=== PATIENT | female | born 1965 | race Caucasian/White ===

== ENCOUNTER 2021-10-12 12:45 | Outpatient (CLI) | payer OTHER, SELFPAY ==
--- NOTE | ~2021-10-12 | MMUS_ITS ---
EXAMINATION: MM diagnostic hola BI w vaishali, US breast BI complete HISTORY: Diffuse cystic mastopathy TECHNIQUE: Bilateral full field and spot ML, MLO and CC 3-D tomosynthesis images were performed and s ynthetic 2-D images were generated. Magnification CC view right breast. CAD analysis was submitted an d interpreted. High resolution bilateral complete breast ultrasound including all 4 quadrants and sub areolar areas was performed. COMPARISON: 08/05/2019 bilateral diagnostic mammography and bilateral complete breast ultrasound 06/03/2019 bilateral screening mammogram BREAST PARENCHYMAL COMPOSITION: The breasts are heterogeneously dense, which may obscure small masses . FINDINGS: MAMMOGRAPHIC FINDINGS: There are new grouped granular appearing microcalcifications in the upper outer quadrant of the right breast. There is a nearby biopsy marker. Stereotactic biopsy is recommended. Minimal benign calcifications are noted elsewhere in the breast. There is a biopsy marker on the left; history of prior bilateral benign breast biopsies. Otherwise no suspicious mass, architectural distortion, malignant calcification, skin thickening or r etraction of either breast is detected. ULTRASOUND: No suspicious solid lesion or shadowing of either breast is detected. Right breast: Prominent ducts are noted. No suspicious mass or shadowing is detected. Left breast: 3:00 2 cm from nipple: Parallel circumscribed complicated cyst measuring 3.5 x 7.2 x 7 mm, with throu gh transmission, benign 4:00 4 cm from nipple: 3.3 x 8 x 7.4 mm cyst with through transmission, benign IMPRESSION: 1. New granular grouped microcalcifications in the upper outer right breast 2. Stereotactic biopsy is recommended BI-RADS category 4, suspicious findings. Dr. Flor telephoned the report and certainly biopsy recommendation on the right breast on 10/12/2021 a t 1458 hours to Sandra, sales and service consultant. She indicated she would have Dr. Palm call me back. Reviewed, dictated and finalized at location A. GE ENTRY SPECIALIST IMPRESSION: 1. New granular grouped microcalcifications in the upper outer right breast 2. Stereotactic biopsy is recommended BI-RADS category 4, suspicious findings. Dr. Flor telephoned the report and certainly biopsy recommendation on the right breast on 10/12/2021 at 1458 hours to Sandra sales and service consultant. She indicated she would have Dr. Palm call me back. IMPRESSION: 1. New granular grouped microcalcifications in the upper outer right breast 2. Stereotactic biopsy is recommended BI-RADS category 4, suspicious findings. Dr. Flor telephoned the report and certainly biopsy recommendation on the right breast on 10/12/2021 at 1458 hours to Sandra, sales and service consultant. She indicated she would have Dr. Palm call me back.
== END 2021-10-12 12:46 | disposition home or self-care (01) ==
PROVIDERS: Visit Provider Surgery
DX: N60.19 Diffuse cystic mastopathy of unspecified breast (principal); N60.02 Solitary cyst of left breast; N60.01 Solitary cyst of right breast; R92.0 Mammographic microcalcification found on diagnostic imaging of breast
CPT/HCPCS: 76641; 77062; 77066; G0279

== ENCOUNTER 2021-10-25 11:28 | Outpatient (CLI) | payer OTHER, SELFPAY ==
--- NOTE | ~2021-10-25 | MM_ITS ---
MM stereotactic bx RT, MM post biopsy diagnostic RT, MM stereotactic specimen RT EXAMINATION: MM stereotactic bx RT, MM post biopsy diagnostic RT, MM stereotactic specimen RT DATE: David Cary M.D. INDICATION: Abnormal calcifications in the right breast. Stereotactic core biopsy is requested evalu ate for malignancy.] TECHNIQUE AND FINDINGS: The risks and potential benefits of the procedure were discussed with the patient and written informe d consent was obtained. The patient was placed in the prone position clustered at the table with the right breast in craniocaudal compression, and the area of interest was localized and targeted utiliz ing digital imaging with stereotaxis. After sterile preparation of the skin, 1% lidocaine was utilized for local anesthesia at the skin pun cture site and 1% lidocaine with epinephrine was utilized for deeper local anesthesia/is about the bi opsy site. A 9G [employer] vacuum assisted biopsy needle was advanced to the level of the calcification o f interest from a cephalad approach utilizing stereotactic guidance and a total of 6 tissue core biop sies were obtained. A specimen radiograph demonstrates that the calcifications of interest are included within the tissue cores. A tissue marker clip was then placed at the biopsy site. The needle was removed and hemosta sis was achieved. The patient tolerated the procedure well and there is no evidence of significant i mmediate complication. The patient was given verbal as well as written postprocedural instructions p rior to discharge from the department. Tissue cores were submitted to surgical pathology for histolo gic analysis. A 2-view right unilateral digital mammogram was obtained post procedure and this demonstrates that th e tissue marker clip is in expected position.] IMPRESSION: 1. Successful stereotactic biopsy of calcifications in the upper outer quadrant of the right breast, followed by tissue marker clip placement. Please refer to pathology report for histologic analysis. Reviewed, dictated and finalized at location A. TING TEACHER IMPRESSION: 1. Successful stereotactic biopsy of calcifications in the upper outer quadran t of the right breast, followed by tissue marker clip placement. Please refer to pathology report for histologic analysis. IMPRESSION: 1. Successful stereotactic biopsy of calcifications in the upper outer quadran t of the right breast, followed by tissue marker clip placement. Please refer to pathology report for histologic analysis.
== END 2021-10-25 11:29 | disposition home or self-care (01) ==
PROVIDERS: Visit Provider Surgery
DX: R92.1 Mammographic calcification found on diagnostic imaging of breast (principal)
CPT/HCPCS: 19081; 77065; 88305

== ENCOUNTER → 2021-11-04 04:40 | Outpatient (CLI) | payer OTHER, SELFPAY ==
[2021-11-04 13:13] LABS: SARS-CoV-2 RNA PCR Negative
== END ==
PROVIDERS: Visit Provider Surgery
DX: Z01.812 Encounter for preprocedural laboratory examination (principal); Z20.822 Contact with and (suspected) exposure to COVID-19
CPT/HCPCS: C9803; U0003; U0005

== ENCOUNTER 2021-11-04 09:06 | Outpatient (CLI) | payer OTHER, SELFPAY ==
--- NOTE | 2021-11-04 09:30 | ECG_ITS ---
Measurements Intervals [place] Rate: 52 P: 66 OR: 146 QRS: 35 QRSD: 89 T: 56 QT: 422 QTc: 393 Interpretive Statements SINUS BRADYCARDIA POSSIBLE RIGHT VENTRICULAR CONDUCTION DELAY [RSR (QR) IN V1/V2] COMPARED TO ECG 02/17/2019 04:24:18 NO SIGNIFICANT CHANGES Electronically Signed On 11-04-2021 16:09:04 CDT by Matty Fonseca M.D.
[2021-11-04 09:48] LABS: Basophils Percent Auto 0.6 % (0.2-1.2); Eosinophils Absolute Auto 0.3 K/mm3 (0-0.3); Eosinophils Percent Auto 4.3 % (0-4.4); Hematocrit 43.7 % (37.0-47.0); Hemoglobin 14.5 g/dL (12.0-15.0); Immature Granulocyte Absolute 0.02 K/mm3 (0.00-0.031); Immature Granulocyte Percent A 0.3 % (0-0.5); Lymphocytes Absolute Auto 2.15 K/mm3 (0.9-3.2); Lymphocytes Percent Auto 32.2 % (18.3-44.2); Mean Corpuscular HGB Conc 33.2 g/dl (32-36); Mean Corpuscular Hemoglobin 31.5 pg (26-34); Mean Corpuscular Volume 94.8 fl (80-100); Monocytes Absolute Auto 0.5 K/mm3 (0.1-0.6); Monocytes Percent Auto 6.9 % (2.6-8.5); Neutrophils Absolute Auto 3.7 K/mm3 (1.3-6.7); Neutrophils Percent Auto 55.7 % (45.5-73.1); Platelet Count Result 328 k/mm3 (150-375); Red Blood Count 4.61 M/mm3 (4.2-5.4); Red Cell Distribution Width 14.6 % (11.5-14.5); White Blood Count 6.7 K/mm3 (4.5-10.0)
[2021-11-04 09:58] LABS: Alanine Aminotransferase 22 U/L (4-35); Albumin Level 4.1 g/dL (3.5-5.1); Alkaline Phosphatase 76 U/L (38-126); Anion Gap 4 mmol/L (8-16); Aspartate Amino Transferase 25 U/L (14-36); Bilirubin,Total 0.7 mg/dL (0.2-1.3); Blood Urea Nitrogen 10 mg/dL (7-17); Calcium 8.7 mg/dL (8.4-10.2); Carbon Dioxide 26 mmol/L (22-30); Chloride 109 mmol/L (98-107); Estimated Glomerular Filt Rate > 60; Glucose 113 mg/dL (65-110); Sodium 139 mmol/L (137-145)
== END 2021-11-04 09:07 | disposition home or self-care (01) ==
LOC: ANHSURGERY 09:13
PROVIDERS: PCP Family Medicine; Visit Provider Surgery
DX: N60.91 Unspecified benign mammary dysplasia of right breast (principal); Z72.0 Tobacco use; Z01.818 Encounter for other preprocedural examination; I45.9 Conduction disorder, unspecified
CPT/HCPCS: 36415; 80053; 85025; 93005

== ENCOUNTER 2021-11-07 02:57 | Day surgery (SDC) | payer OTHER, SELFPAY ==
[2021-11-01 11:46] VITALS: BMI 24.2
--- NOTE | 2021-11-01 12:01 | PC.NURSE ---
Addendum entered by Hilary Mejia RN 11/01/21 12:03: EDITA SHOWER MORNING OF SURGERY Original Note: Report to the Outpatient Waiting Room, entrance under the green pavilion located off [facility], at time 8:30 on date 11/07/21. OR Time: 12:00. (Needle localization at 9:30). - You and your visitor will be asked a series of questions to screen for COVID 19 for your protection. - A mask is required within the hospital. One visitor will be allowed to accompany the patient into the hospital. Patients visitor will be instructed to remain with patient at all times or leave the building. We will allow the visitor to come back to the postoperative area when patient is ready. Preoperative COVID Testing Requirements: COVID TEST 11/04 AT 9:15 No COVID Test needed if: (proof is required; if not received patient will have Rapid Test prior to entry) - Patient has received COVID Vaccine at least 14 days prior to procedure date or - Patient has positive COVID test result within last 90 days of surgery date. COVID Test needed if above criteria is not met If not COVID vaccinated a COVID test must be conducted within 72 hours of surgery and patient is asked to isolate self from time of testing until procedure. You will go to the [facility] Site for your COVID testing. The [facility] is located at the corner of [address] [facility]. You will only be called if COVID results are positive and your surgeon may reschedule your elective surgery date. Patients may have clear liquids (water, carbonated beverages, clear teas, apple juice) until 3 hours prior to surgery with a maximum of 20 ounces. - No food from midnight until time of surgery Take the following medications with a SIP of water the morning of surgery: NONE Medications to discontinue per physician: N/A Date to take last dose: N/A Please no make-up, nail greenlandic, hairspray, perfume, deodorant, or body powder the day of surgery. No jewelry (including any body piercings) or valuables the day of surgery, leave them at home. Please take a shower or bath the night before, or the morning of, surgery with an antibacterial soap. Wear comfortable, loose fitting clothing. - Jewelry must be removed prior to entering the operating room. Rings and piercings that are not removed may be cut off. - The hospital will not accept responsibility for valuables. - Please leave all valuables, including medications, at home the day of surgery. If you are going home after surgery, a licensed auto carrier driver must drive you home. - NO public transportation without another adult. - We recommend that an adult stay with you for 24 hours following discharge. - We also recommend that you do not drive, make important decision, drink alcoholic beverages, or take any drugs that were not prescribed by your health care provider for at least 24 hours after your discharge time. Follow any additional instructions given to you from your surgeon. Telephone instructions given to EDMOND MILIAN and asked if any additional questions and then verbalized understanding. Patient advised to call surgeon office or pre surgery nurse liaison [phone] if any additional questions.
--- NOTE | 2021-11-05 13:44 | WPDANESEPPF ---
Anes - Initial Pre Proc Eval Procedure: Operation Date: 11/07/21 12:00 Proposed Procedures p Right Breast Biopsy with Ultrasound and/or Mammogram Guided Needle Localization - Salazar Plam MD <Jermaine Haque DO - Last Filed: 11/09/21 06:43> Date/Time: 11/05/21 13:44 <Jermaine Haque DO - Last Filed: 11/09/21 06:43> Surgeon: Salazar Palm MD <Jermaine Haque DO - Last Filed: 11/09/21 06:43> Pre Op Diagnosis: Atypical Ductal Hyperplasia Rt Breast <Jermaine Haque DO - Last Filed: 11/09/21 06:43> Patient Data Age: 56 Gender: F Height: 1.68 m Weight: 68.04 kg <Jermaine Haque DO - Last Filed: 11/09/21 06:43> Allergies Allergy/AdvReac Type Severity Reaction Status Date / Time No Known Allergies Allergy Verified 11/07/21 10:16 <Jermaine Haque DO - Last Filed: 11/09/21 06:43> Home Medications Medication Instructions Recorded Confirmed Type hydrocodone-acetaminophen 1 tablet PO Q6H PRN #12 tablet 11/07/21 Rx <Jermaine Haque DO - Last Filed: 11/09/21 06:43> Patient hx anesthesia problems: none <Nader Aquino MD - Last Filed: 11/07/21 11:52> Family hx anesthesia problems: none <Nader Aquino MD - Last Filed: 11/07/21 11:52> Results Review: All pre-operative results and documents have been reviewed as part of the pre-operative evaluation. <Jermaine Haque DO - Last Filed: 11/09/21 06:43> PMFSH Past Medical History Medical History: Medical History Cyst of breast, right, diffuse fibrocystic Tobacco use <Jermaine Haque DO - Last Filed: 11/09/21 06:43> Family History Family History: Family History Mother Family history of Alzheimer's disease Hypertension Father Mouth cancer Unknown Cerebrovascular accident <Jermaine Haque DO - Last Filed: 11/09/21 06:43> Social History Social History: Social History Smoking packs per day: 1 Smoking cigarettes per day: 20.0 Years smoked: 30 Smoking pack-years: 30.00 Smoking status: Former smoker Tobacco type: cigarettes Smoking end date: 09/20/21 Alcohol intake: never Substance use: never Substance use type: does not use Living arrangements: with family Gender identity (if verbalized by the patient): Female Spiritual care concerns: No <Jermaine Haque DO - Last Filed: 11/09/21 06:43> Anes - Eval Final PreProcedure Day of Procedure 11/05/21 13:44 <Jermaine Haque DO - Last Filed: 11/09/21 06:43> Patient weight: normal <Jermaine Haque DO - Last Filed: 11/09/21 06:43> Heart: regular rate and rhythm <Jermaine Haque DO - Last Filed: 11/09/21 06:43> Lungs: clear to auscultation and normal air movement <Jermaine Haque DO - Last Filed: 11/09/21 06:43> Airway: Mallampati scale class II <Jermaine Haque DO - Last Filed: 11/09/21 06:43> Neurological: alert and oriented <Jermaine Haque DO - Last Filed: 11/09/21 06:43> Last oral intake: >/= 8 hours <Jermaine Haque DO - Last Filed: 11/09/21 06:43> ASA classification: II <Jermaine Haque DO - Last Filed: 11/09/21 06:43> Emergent: no <Jermaine Haque DO - Last Filed: 11/09/21 06:43> Anesthetic plan: proceed <Jermaine Haque DO - Last Filed: 11/09/21 06:43> Anesthesia type and monitoring: general LMA and standard monitoring <Jermaine Haque, - Last Filed: 11/09/21 06:43> Results Review: All pre-operative results and documents have been reviewed as part of the pre-operative evaluation. <Jermaine Haque, - Last Filed: 11/09/21 06:43> Informed Consent: The patient's anesthetic plan and its attendant risks and benefits were discussed with t
--- NOTE | 2021-11-06 18:14 | PM.HPGS ---
History of Present Illness History of Present Illness Consent: Risks, benefits, and alternatives of a Rt. Breast needle localized excisional breast biopsy have been discussed and questions answered. Patient agrees to proceed with procedure. Chief complaint: Atypical Ductal Hyperplasia Rt Breast Narrative: Sandy Orellana is a 56 year old female who recently had a F/U Rt. breast mammogram, extra compression views and then a Rt. breast mammographically guided needle core biopsy. The pathology report can back and I then called the patient and let her know that the pathology showed that there is some atypical ductal hyperplasia at the site of the core biopsy. This is not cancer. However, because there are changes toward cancer or will could be immediatley next to this area that it would be recommended that she consider having the entire area where the biopsy was done excised as a complete excisional breast biopsy in the operating room. This can be done with needle localization. After our discussion she is willing okay to go ahead and today we plan to excise the entire area where the new radilogic clip is in place in kthe uper outer quadrantof the right breast. . Recommended surgery: Right breast needle localized excisional breast biopsy Review of Systems Review of Systems: Const All systems reviewed & are unremarkable except as noted in HPI and below Reports no additional complaints, Denies frequent falls, Denies headache(s) and Reports other (no recent weight change, no fever) Eyes Denies blurry vision, Denies itchy eyes, Denies photophobia and Denies spots in vision ENT Reports Normal hearing present, Denies headache(s), Denies hoarseness, Denies lip swelling and Denies sore throat Card Denies chest pain at rest, Denies irregular heart rhythm and Denies dyspnea Resp Denies chest congestion, Denies cough and Denies dyspnea. Pt recently quit smoking. Has some element of COPD,and sees Pulmonology for same GI Denies melena and Denies coffee ground emesis Musc Denies abnormal gait and Denies back pain Skin/Breast Denies new lesions, Denies rash and Denies wounds Neuro Reports Normal hearing present, Denies abnormal gait, Denies confusion, Denies frequent falls, Denies headache(s), Denies convulsions and Denies seizure-like activity Psych Denies confusion and Denies depression Endo Denies cold intolerance and Denies heat intolerance Estrada/Lymph Denies easy bleeding, Denies easy bruising and Denies lymphadenopathy Aller/Immun Denies itchy eyes and Denies lip swelling PMFSH Past Medical History Medical History Cyst of breast, right, diffuse fibrocystic Tobacco use Family History Family History Mother Family history of Alzheimer's disease Hypertension Father Mouth cancer Unknown Cerebrovascular accident Social History Social History Smoking packs per day: 1 Smoking cigarettes per day: 20.0 Years smoked: 30 Smoking pack-years: 30.00 Smoking status: Former smoker Tobacco type: cigarettes Smoking end date: 09/20/21 Alcohol intake: never Substance use: never Substance use type: does not use Living arrangements: with family Gender identity (if verbalized by the patient): Female Spiritual care concerns: No Meds Home Medications and Allergies Home Medications Medication Instructions Recorded Confirmed Type hydrocodone-acetaminophen 1 tablet PO Q6H PRN #12 tablet 11/07/21 Rx Allergies Allergy/AdvReac Type Severity Reaction Status Date / Time No Known Allergies Allergy Verified 11/07/21 10:16 Exam Narrative: Const Constitutional General: healthy appearing; No poor hygiene Nutritional Appearance: well nourished Orientation/consciousness: oriented to person, oriented to place and oriented to time HENMT Head: normal to inspection Ears: hearing grossly normal bilaterally Genera
--- NOTE | ~2021-11-07 | MM_ITS ---
MM surgical specimen RT DATE: 11/07/2021 13:10 INDICATION: Surgical excision of biopsy markers TECHNIQUE: 2 separate surgical soft tissue specimens were subjected to mammography. COMPARISON: 11/07/2021 mammographic localization images FINDINGS: One specimen contains the wire and a dumbbell biopsy marker. The other smaller surgical soft tissue specimen contains a biopsy ring marker. IMPRESSION: Successful removal of 2 biopsy markers Reviewed, dictated and finalized at Location A. Reviewed, dictated and finalized at location A.
--- NOTE | ~2021-11-07 | MM_ITS ---
MM needle loc RT DATE: 11/07/2021 10:40 INDICATION: Preoperative mammographically guided wire localization of dumbbell right breast marker, u pper outer quadrant TECHNIQUE: The purpose of the procedure, technique and measured complications were discussed with the patient. The patient verbalized understanding and gave consent. Timeout procedure confirmed proper patient and procedure and sidedness. The right breast was placed in lateral medial compression with the biopsy. Greater over the lateral a spect of the breast. The skin was prepared with sterile Betadine. 1% lidocaine local anesthetic was administered to the sk in and subcutaneous tissues. A 5 cm [facility] needle was directed into the breasts at the biopsy marker. Using mediolateral a nd craniocaudal mammographic exposures caliber of the needle was guided into the area of interest. Th e wire was engaged to the tip of the needle and the needle withdrawn. Final lateral medial and craniocaudal images reveal the wire the associated with the biopsy marker in the upper outer quadrant of the right breast. IMPRESSION: Successful mammographically guided wire localization of upper outer quadrant right dumbbe ll breast marker Reviewed, dictated and finalized at Location [facility]. Reviewed, dictated and finalized at location A. IMPRESSION: Successful mammographically guided wire localization of upper outer quadrant right dumbbell breast marker
[2021-11-07 08:45] VITALS: BP 126/111; PULSE 56; RESP 16; TEMP 36.5; O2SAT 99
[2021-11-07 09:30] VITALS: BP 126/89; PULSE 58
[2021-11-07] MEDS: KETOROLAC 15 MG/ML VIAL (*BKC) IV PUSH (09:38)
[2021-11-07] MEDS: ACETAMINOPHEN 500 MG TABLET 1000 MG PO (09:38)
[2021-11-07] MEDS: LACTATED RINGERS 1,000 ML 30 ML IV CONT (09:43)
--- NOTE | 2021-11-07 11:50 | WPDHPUPDATE1 ---
History and Physical Update Update Date/Time: 11/07/21 11:50 History and Physical has been reviewed, including an updated exam of the patient. There are NO changes in the patient's condition. Risks, benefits, and alternatives have been discussed and questions answered. Patient agrees to proceed with procedure.
[2021-11-07] MEDS: ceFAZolin 2 GM/D5W 50 ML 2 GM/50 ML BAG IVPB (12:16)
[2021-11-07] MEDS: BUPIVACAINE/EPINEPHRINE 0.25% 10 ML VIAL 20 ML INFILTRATE (12:25)
[2021-11-07 13:20] VITALS: BP 94/62; PULSE 49; RESP 16; O2SAT 97
--- NOTE | 2021-11-07 13:28 | W.PM.PROC2 ---
Procedure Note - Detailed Date of Procedure 11/07/21 Pre-op Diagnosis Atypical Ductal Hyperplasia Rt. Breast Post-op Diagnosis Same Procedure Performed Right Breast Needle localized excisional biopsy Surgeon Salazar Palm MD Supervisor Stone Dianne BLACK. OR First Asst. Anesthesia Local (0.25% Marcaine with epinephrine) and Other (GIVS with LMA) Indications Patient had a recent mammographically guided needle core biopsy of the right breast upper outer quadrant which showed atypical ductal hyperplasia. Therefore, I recommended that she have the entire area where this was found excised for further pathologic evaluation. Findings Superficially there was normal fatty breast tissue where as deeper in the breast there was thick white fibrous tissue in the area of the previous biopsy and needle localization. Also found was a circular marker that had been previously placed at a different facility right at the posterior margin of the specimen a that we took. Therefore about a 1 x 1 cm area of breast tissue was removed including this old marker clip from the deep margin of the current biopsy cavity. Single black suture was placed to mary the new deep margin. Description of Procedure The patient was seen preoperatively in the holding area, and I marked the patient on the operative side. She was brought to the operating room and anesthesia delivered. She was prepped and draped in the usual sterile fashion around the localizing wire that had been placed in the right breast in radiology. I carefully reviewed the patient's post localization radiology films provided in the room on the back lit Radiology viewing screens. Patient was then placed in an appropriate position and after general anesthesia was induced with an LMA patient's head was turned slightly to the left and the entire breast was prepped and draped in usual sterile fashion after removing the tape and marker that had been placed over the localizing wire. Right around the wire Betadine was used the rest the breast was prepped with chlorhexidine. A timeout was performed confirming patient and site of surgery being the right breast which has a localization wire within it. The localizing wire was noted to be entering the breast in the lateral upper mid outer part of the Right breast approximately 1 - 2 cm above the level of the nipple-areolar border. I then carefully outlined a curvilinear more vertical incision intersecting the wire extending more inferiorly than superiorly from where the wire entered the skin. Following this local anesthetic using 0.25% Marcaine with epinephrine was then instilled along the proposed line of incision. A fifteen blade knife was used to make an incision intersecting the wire. I then carefully with tissue retraction dissected straight down and medial along the wire for about 2 cm. I then grasped the breast tissue both superior and inferiorly to the wire and excised an approximate area of [3 x 3 x 3 cm] around the wire itself. This included the breast tissue just beyond the curled hook at the end of the wire. The tissue surrounding the wire was removed widely with a scalpel or electrocautery and then electrocautery was used for hemostasis. The specimen was oriented on a grid and sent for specimen mammogram. A short suture was placed on the superior side and long suture placed on the lateral side of the specimen and the wire was exiting the lateral side of the specimen. I DID NOT send the breast tissue for fresh tissue exam immediate report requested, but rather sent it fresh to pathology after the specimen mammogram. While we awaited the report of the specimen mammogram I carefully inspected the entire inner circumference of the biopsy cavity. There was not much bleeding on initial inspection. And at the deep margin in about the center of the area of dissection I notice the round loop metallic clip from a previous biopsy. Therefore since this was in thick breast fibrous tissu
[2021-11-07 13:50] VITALS: BP 94/63; PULSE 50; RESP 16; O2SAT 97
[2021-11-07 14:20] VITALS: BP 119/78; PULSE 50; RESP 16; O2SAT 97
== END 2021-11-07 14:45 | disposition home or self-care (01) ==
PROVIDERS: PCP Family Medicine; Visit Provider Surgery
PROC: (CPT 19125; principal; 2021-11-07 12:00)
DX: D05.01 Lobular carcinoma in situ of right breast (principal); R92.0 Mammographic microcalcification found on diagnostic imaging of breast; N60.31 Fibrosclerosis of right breast; N60.41 Mammary duct ectasia of right breast; N60.21 Fibroadenosis of right breast; Z87.891 Personal history of nicotine dependence
CPT/HCPCS: 19125; 19281; 36415; 76098; 80053; 85025; 88307; 93005; A9270; C1769; C9803; J0690; J1100; J1200; J1885; J2250; J2370; J2405; J2704; J3010; J7120; U0003; U0005

== ENCOUNTER → 2021-12-05 01:29 | Outpatient (CLI) | payer OTHER, SELFPAY ==
[2021-12-05 12:53] LABS: SARS-CoV-2 RNA PCR Negative
== END ==
PROVIDERS: PCP Family Medicine; Visit Provider Surgery
DX: Z01.812 Encounter for preprocedural laboratory examination (principal); Z20.822 Contact with and (suspected) exposure to COVID-19
CPT/HCPCS: C9803; U0003; U0005

== ENCOUNTER 2021-12-08 00:33 | Day surgery (SDC) | payer OTHER, SELFPAY ==
[2021-11-28 12:19] VITALS: BMI 23.4
--- NOTE | 2021-12-07 14:49 | WPDANESEPPF ---
Anes - Initial Pre Proc Eval Procedure: Operation Date: 12/08/21 12:30 Proposed Procedures p Screening Colonoscopy - Salazar Palm MD Date/Time: 12/07/21 14:49 Surgeon: Salazar Palm MD Pre Op Diagnosis: neoplasm screening Patient Data Age: 56 Gender: F Height: 1.68 m Weight: 65.9 kg Allergies Allergy/AdvReac Type Severity Reaction Status Date / Time No Known Allergies Allergy Verified 12/08/21 11:19 Home Medications Medication Instructions Recorded Confirmed Type No Home Medications 11/28/21 12/08/21 History Patient hx anesthesia problems: none Family hx anesthesia problems: none Results Review: All pre-operative results and documents have been reviewed as part of the pre-operative evaluation. PMFSH Past Medical History Medical History Cyst of breast, right, diffuse fibrocystic H/O needle biopsy right breast 11/07/21 Pulmonary nodule Tobacco use Family History Family History Mother Family history of Alzheimer's disease Hypertension Father Mouth cancer Unknown Cerebrovascular accident Social History Social History Smoking packs per day: 1 Smoking cigarettes per day: 20.0 Years smoked: 30 Smoking pack-years: 30.00 Smoking status: Current some day smoker Tobacco type: cigarettes Smoking end date: 09/20/21 Alcohol intake: never Substance use: never Substance use type: does not use Gender identity (if verbalized by the patient): Female Spiritual care concerns: No Anes - Eval Final PreProcedure Day of Procedure 12/07/21 14:49 Patient weight: normal Heart: regular rate and rhythm Lungs: clear to auscultation and normal air movement Airway: Mallampati scale class II Neurological: alert and oriented Last oral intake: >/= 8 hours ASA classification: II Emergent: no Anesthetic plan: proceed Anesthesia type and monitoring: general GIVS and standard monitoring Results Review: All pre-operative results and documents have been reviewed as part of the pre-operative evaluation. Informed Consent: The patient's anesthetic plan and its attendant risks and benefits were discussed with the patient/family/POA. Questions were solicited and answers provided to the satisfaction of the patient/family/POA.
[2021-12-08 11:19] VITALS: BP 140/75; PULSE 50; RESP 15; TEMP 36.2; O2SAT 96; BMI 24.5
[2021-12-08] MEDS: LACTATED RINGERS 1,000 ML 150 ML IV CONT ×2 (11:36→13:40)
--- NOTE | 2021-12-08 11:38 | SUR.PREOP ---
Reported to Dr. Dominguez that pt heart rate ranges from upper 40's to 50 while resting. Fluids being started, Dr. Dominguez stated that he will be seeing the pt.
--- NOTE | 2021-12-08 11:47 | WPDANESEPPF ---
Anes - Initial Pre Proc Eval Procedure: Operation Date: 12/08/21 12:30 Proposed Procedures p Screening Colonoscopy - Salazar Palm MD Date/Time: 12/08/21 11:47 Surgeon: Salazar Palm MD Pre Op Diagnosis: neoplasm screening Patient Data Age: 56 Gender: F Height: 1.68 m Weight: 68.8 kg Last Vital Signs Temp 97.2 F L 12/08/21 11:19 Pulse 50 L 12/08/21 11:19 Resp 15 12/08/21 11:19 BP 140/75 12/08/21 11:19 Pulse Ox 96 12/08/21 11:19 Allergies Allergy/AdvReac Type Severity Reaction Status Date / Time No Known Allergies Allergy Verified 12/08/21 11:19 Home Medications Medication Instructions Recorded Confirmed Type No Home Medications 11/28/21 12/08/21 History Patient hx anesthesia problems: none Family hx anesthesia problems: none Results Review: All pre-operative results and documents have been reviewed as part of the pre-operative evaluation. PMFSH Past Medical History Medical History Cyst of breast, right, diffuse fibrocystic H/O needle biopsy right breast 11/07/21 Pulmonary nodule Tobacco use Family History Family History Mother Family history of Alzheimer's disease Hypertension Father Mouth cancer Unknown Cerebrovascular accident Social History Social History Smoking packs per day: 1 Smoking cigarettes per day: 20.0 Years smoked: 30 Smoking pack-years: 30.00 Smoking status: Current some day smoker Tobacco type: cigarettes Smoking end date: 09/20/21 Alcohol intake: never Substance use: never Substance use type: does not use Living arrangements: with family Gender identity (if verbalized by the patient): Female Spiritual care concerns: No Anes - Eval Final PreProcedure Day of Procedure 12/08/21 11:47 Patient weight: normal Heart: bradycardia Lungs: clear to auscultation Airway: Mallampati scale class II Neurological: alert and oriented Last oral intake: >/= 8 hours ASA classification: II Emergent: no Anesthetic plan: proceed Anesthesia type and monitoring: general GIVS and standard monitoring Results Review: All pre-operative results and documents have been reviewed as part of the pre-operative evaluation. Informed Consent: The patient's anesthetic plan and its attendant risks and benefits were discussed with the patient/family/POA. Questions were solicited and answers provided to the satisfaction of the patient/family/POA.
[2021-12-08 13:42] VITALS: BP 114/58; PULSE 60; RESP 20; TEMP 36.5; O2SAT 100
[2021-12-08 13:52] VITALS: BP 120/65; PULSE 58; RESP 18; O2SAT 98
[2021-12-08 14:02] VITALS: BP 138/78; PULSE 53; RESP 19; O2SAT 100
[2021-12-08 14:12] VITALS: BP 143/76; PULSE 44; RESP 18; O2SAT 99
== END 2021-12-08 14:22 | disposition home or self-care (01) ==
PROVIDERS: PCP Family Medicine; Visit Provider Surgery
PROC: 0DJD8ZZ Inspection of Lower Intestinal Tract, Via Natural or Artificial Opening Endoscopic (ICD-10-PCS; CPT 45378; principal; 2021-12-08 12:30)
DX: Z12.11 Encounter for screening for malignant neoplasm of colon (principal); K63.5 Polyp of colon; K62.1 Rectal polyp; K64.1 Second degree hemorrhoids; Z87.891 Personal history of nicotine dependence
CPT/HCPCS: 45380; 88305; C9803; J2704; J7120; U0003; U0005

== ENCOUNTER 2021-12-09 13:49 | Outpatient (CLI) | payer OTHER, SELFPAY ==
--- NOTE | ~2021-12-09 | CT_ITS ---
EXAMINATION: CT diagnostic chest wo con EXAM DATE: 12/09/2021 14:14 INDICATION: R91.1 - Solitary pulmonary nodule . TECHNIQUE: Spiral CT of the chest without contrast. Axial, coronal and sagittal images of the chest were reviewed. Coronal maximum intensity pixel images of chest reviewed. The dose-length product ( DLP) for this examination was 57.09 mGy-cm. The exposure was tailored according to patient size (aut o mA exposure control), and iterative reconstruction (ASIR) was used as additional dose reduction wilner hnique. Comparison is made to prior examination from 03/28/2019. FINDINGS: Several small right middle lobe nodules 3 mm or less unchanged. No new or suspicious pulmo nary nodules. Mild emphysema and hyperinflation. There are no pleural or pericardial effusions. Tr acheobronchial tree is patent. There is no mediastinal, hilar or axillary lymphadenopathy. There is no pneumothorax. Heart normal in size. There is minimal coronary arterial calcification, arter ial sclerosis. Upper abdomen is unremarkable. Mild to moderate thoracic dextroscoliosis. IMPRESSION: Lung-RADS category 2, benign appearance or behavior (<1% chance of malignancy); recommen d continued LDCT screening in 1 year. Reviewed, dictated and finalized at location A. IMPRESSION: Lung-RADS category 2, benign appearance or behavior (<1% chance of malignancy); recommend continued LDCT screening in 1 year.
== END 2021-12-09 13:50 | disposition home or self-care (01) ==
PROVIDERS: PCP Family Medicine; Visit Provider Physician Assistant
DX: R91.1 Solitary pulmonary nodule (principal)
CPT/HCPCS: 71250

== ENCOUNTER 2021-12-15 14:36 | Outpatient (CLI) | payer OTHER, SELFPAY ==
[2021-12-15 14:53] LABS: Basophils Percent Auto 0.4 % (0.2-1.2); Eosinophils Absolute Auto 0.2 K/mm3 (0-0.3); Eosinophils Percent Auto 2.9 % (0-4.4); Hematocrit 47.1 % (37.0-47.0); Immature Granulocyte Absolute 0.02 K/mm3 (0.00-0.031); Immature Granulocyte Percent A 0.3 % (0-0.5); Lymphocytes Absolute Auto 2.66 K/mm3 (0.9-3.2); Mean Corpuscular HGB Conc 31.8 g/dl (32-36); Mean Corpuscular Hemoglobin 31.4 pg (26-34); Mean Corpuscular Volume 98.5 fl (80-100); Monocytes Absolute Auto 0.6 K/mm3 (0.1-0.6); Monocytes Percent Auto 7.9 % (2.6-8.5); Neutrophils Absolute Auto 4.3 K/mm3 (1.3-6.7); Neutrophils Percent Auto 54.5 % (45.5-73.1); Platelet Count Result 292 k/mm3 (150-375); Red Blood Count 4.78 M/mm3 (4.2-5.4); White Blood Count 7.8 K/mm3 (4.5-10.0)
[2021-12-15 16:00] LABS: Alanine Aminotransferase 18 U/L (4-35); Albumin Level 4.4 g/dL (3.5-5.1); Alkaline Phosphatase 87 U/L (38-126); Anion Gap 6 mmol/L (8-16); Aspartate Amino Transferase 22 U/L (14-36); Bilirubin,Total 0.6 mg/dL (0.2-1.3); Blood Urea Nitrogen 13 mg/dL (7-17); Calcium 8.9 mg/dL (8.4-10.2); Carbon Dioxide 26 mmol/L (22-30); Chloride 106 mmol/L (98-107); Estimated Glomerular Filt Rate > 60; Glucose 91 mg/dL (65-110); Sodium 138 mmol/L (137-145)
== END 2021-12-15 14:37 | disposition home or self-care (01) ==
PROVIDERS: PCP Family Medicine; Visit Provider Internal Medicine Hematology & Oncology
DX: D05.01 Lobular carcinoma in situ of right breast (principal)
CPT/HCPCS: 36415; 80053; 85025

== ENCOUNTER 2022-04-17 11:19 | Outpatient (CLI) | payer OTHER, SELFPAY ==
--- NOTE | ~2022-04-17 | MM_ITS ---
EXAMINATION: MM diagnostic hola RT w vaishali HISTORY: History of lobular carcinoma in situ TECHNIQUE: Craniocaudal, mediolateral, and mediolateral oblique 3-D tomosynthesis images of the right breast were performed and synthetic 2-D images were generated. CAD analysis was submitted and interp reted. COMPARISON: 10/12/2021, 08/05/2019,06/03/2019 BREAST PARENCHYMAL COMPOSITION: The breasts are heterogeneously dense, which may obscure small masses . FINDINGS: There are changes of interval lumpectomy in the upper outer quadrant of the right breast. N o suspicious mass, calcification, or architectural distortion are identified. IMPRESSION: 1. Interval lumpectomy without mammographic evidence of malignancy. 2. Routine follow-up is recommended. BI-RADS Category 2: Benign finding(s). Reviewed, dictated and finalized at location A.
== END 2022-04-17 11:20 | disposition home or self-care (01) ==
LOC: ANHIMG 11:22
PROVIDERS: PCP Family Medicine; Visit Provider Internal Medicine Hematology & Oncology
DX: D05.01 Lobular carcinoma in situ of right breast (principal)
CPT/HCPCS: 77061; 77065; G0279

== ENCOUNTER 2022-09-14 14:00 | Outpatient (CLI) | payer OTHER, SELFPAY ==
--- NOTE | ~2022-09-14 | MM_ITS ---
EXAMINATION: MM diagnostic hola BI w vaishali HISTORY: History of right breast excisional biopsy TECHNIQUE: Craniocaudal, mediolateral, and mediolateral oblique 3-D tomosynthesis images of the breas ts were performed and synthetic 2-D images were generated. CAD analysis was submitted and interpreted . COMPARISON: 04/17/2022,10/12/2021, 08/05/2019, 06/03/2019 BREAST PARENCHYMAL COMPOSITION: The breasts are heterogeneously dense, which may obscure small masses . FINDINGS: No suspicious mass, calcification, or architectural distortion are identified in either phillip ast to suggest malignancy. There has been no suspicious interval change. Changes of excisional biopsy are noted in the upper outer quadrant of the right breast. IMPRESSION: 1. No mammographic evidence of malignancy. 2. Recommend routine screening mammography in one year. BI-RADS Category 2: Benign finding(s). Reviewed, dictated and finalized at location A. CTURES ENGINEER
== END 2022-09-14 14:01 | disposition home or self-care (01) ==
PROVIDERS: PCP Family Medicine; Visit Provider Surgery
DX: R92.8 Other abnormal and inconclusive findings on diagnostic imaging of breast (principal)
CPT/HCPCS: 77062; 77066; G0279

== ENCOUNTER 2022-11-27 14:18 | Outpatient (CLI) | payer OTHER, SELFPAY ==
[2022-11-27 14:39] LABS: Basophils Percent Auto 0.6 % (0.2-1.2); Eosinophils Absolute Auto 0.2 K/mm3 (0-0.3); Eosinophils Percent Auto 3.2 % (0-4.4); Hematocrit 41.6 % (37.0-47.0); Immature Granulocyte Absolute 0.01 K/mm3 (0.00-0.031); Immature Granulocyte Percent A 0.1 % (0-0.5); Lymphocytes Absolute Auto 2.46 K/mm3 (0.9-3.2); Lymphocytes Percent Auto 34.2 % (18.3-44.2); Mean Corpuscular HGB Conc 33.7 g/dl (32-36); Mean Corpuscular Hemoglobin 31.7 pg (26-34); Mean Corpuscular Volume 94.3 fl (80-100); Mean Platelet Volume 8.8 fl (7.4-10.4); Monocytes Absolute Auto 0.5 K/mm3 (0.1-0.6); Monocytes Percent Auto 6.4 % (2.6-8.5); Neutrophils Percent Auto 55.5 % (45.5-73.1); Platelet Count Result 292 k/mm3 (150-375); Red Blood Count 4.41 M/mm3 (4.2-5.4); Red Cell Distribution Width 13.8 % (11.5-14.5); White Blood Count 7.2 K/mm3 (4.5-10.0)
[2022-11-27 14:45] LABS: Blood Urea Nitrogen 11 mg/dL (8-26); Carbon Dioxide 26 mmol/L (22-30); Chloride 105 mmol/L (98-109); Estimated Glomerular Filt Rate > 60; Glucose 92 mg/dL (70-105); Potassium 3.8 mmol/L (3.5-4.9); Sodium 140 mmol/L (138-146)
[2022-11-27 17:11] LABS: Alanine Aminotransferase 21 U/L (6-35); Albumin Level 4.4 g/dL (3.5-5.1); Alkaline Phosphatase 97 U/L (38-126); Anion Gap 6 mmol/L (8-16); Aspartate Amino Transferase 26 U/L (14-36); Bilirubin,Total 0.8 mg/dL (0.2-1.3); Blood Urea Nitrogen 12 mg/dL (7-17); Calcium 9.3 mg/dL (8.4-10.2); Carbon Dioxide 27 mmol/L (22-30); Chloride 107 mmol/L (98-107); Estimated Glomerular Filt Rate > 60; Glucose 93 mg/dL (65-110); Sodium 140 mmol/L (137-145)
== END 2022-11-27 14:19 | disposition home or self-care (01) ==
PROVIDERS: PCP Family Medicine; Visit Provider Internal Medicine Hematology & Oncology
DX: D05.01 Lobular carcinoma in situ of right breast (principal)
CPT/HCPCS: 36415; 80047; 80053; 85025

== ENCOUNTER 2022-12-11 10:25 | Outpatient (CLI) | payer OTHER, SELFPAY ==
--- NOTE | ~2022-12-11 | CT_ITS ---
EXAMINATION: CT lung screening DATE: 12/11/2022 10:57 INDICATION: Personal history nicotine dependence, prior smoker with 26 pack year history TECHNIQUE: Computed tomography (CT) of the chest was performed without intravenous contrast. The dose -length product (DLP) was 70.52 mGy-cm. Automated exposure control and iterative reconstruction techn [employer] were employed. COMPARISON: 12/09/2021 FINDINGS: There is mild emphysema. There is a 4 mm subpleural nodule in the right middle lobe on imag e 66. There is a 4 mm right middle lobe nodule on the same image. No pleural effusion or pneumothorax . No pathologically enlarged thoracic lymph nodes are identified. The heart size is normal. Calcified coronary artery atherosclerosis is noted. There is a 9 mm cyst of the left hepatic lobe. There is mi ld thoracic spondylosis. IMPRESSION: 1. Lung-RADS category 3: Probably benign. Followup with noncontrast low-dose chest CT in 6 months is recommended. Reviewed, dictated and finalized at location B. IMPRESSION: 1. Lung-RADS category 3: Probably benign. Followup with noncontrast low-dose ch est CT in 6 months is recommended.
== END 2022-12-11 10:26 | disposition home or self-care (01) ==
PROVIDERS: PCP Family Medicine; Visit Provider Nurse Practitioner Family
DX: Z12.2 Encounter for screening for malignant neoplasm of respiratory organs (principal); Z87.891 Personal history of nicotine dependence
CPT/HCPCS: 71271

== ENCOUNTER 2023-04-02 15:47 | Outpatient (CLI) | payer OTHER, SELFPAY ==
[2023-04-02 16:02] LABS: Basophils Percent Auto 0.6 % (0.2-1.2); Eosinophils Absolute Auto 0.3 K/mm3 (0-0.3); Eosinophils Percent Auto 4.4 % (0-4.4); Hematocrit 44.1 % (37.0-47.0); Hemoglobin 14.9 g/dL (12.0-15.0); Immature Granulocyte Absolute 0.01 K/mm3 (0.00-0.031); Immature Granulocyte Percent A 0.1 % (0-0.5); Lymphocytes Absolute Auto 2.54 K/mm3 (0.9-3.2); Lymphocytes Percent Auto 35.8 % (18.3-44.2); Mean Corpuscular HGB Conc 33.8 g/dl (32-36); Mean Corpuscular Hemoglobin 31.8 pg (26-34); Mean Platelet Volume 9.1 fl (7.4-10.4); Monocytes Absolute Auto 0.5 K/mm3 (0.1-0.6); Monocytes Percent Auto 6.5 % (2.6-8.5); Neutrophils Absolute Auto 3.7 K/mm3 (1.3-6.7); Neutrophils Percent Auto 52.6 % (45.5-73.1); Platelet Count Result 307 k/mm3 (150-375); Red Blood Count 4.69 M/mm3 (4.2-5.4); Red Cell Distribution Width 13.6 % (11.5-14.5); White Blood Count 7.1 K/mm3 (4.5-10.0)
[2023-04-02 16:07] LABS: Blood Urea Nitrogen 13 mg/dL (8-26); Carbon Dioxide 25 mmol/L (22-30); Chloride 103 mmol/L (98-109); Estimated Glomerular Filt Rate > 60; Glucose 134 mg/dL (70-105); Ionized Calcium (POC) 1.23 mmol/L (1.11-1.31); Potassium 3.5 mmol/L (3.5-4.9); Sodium 141 mmol/L (138-146)
[2023-04-02 16:40] LABS: Alanine Aminotransferase 23 U/L (6-35); Albumin Level 4.2 g/dL (3.5-5.1); Alkaline Phosphatase 89 U/L (38-126); Anion Gap 7 mmol/L (8-16); Aspartate Amino Transferase 24 U/L (14-36); Bilirubin,Total 0.6 mg/dL (0.2-1.3); Blood Urea Nitrogen 13 mg/dL (7-17); Carbon Dioxide 26 mmol/L (22-30); Chloride 105 mmol/L (98-107); Estimated Glomerular Filt Rate > 60; Glucose 133 mg/dL (65-110); Potassium 3.5 mmol/L (3.4-5.0); Sodium 138 mmol/L (137-145)
== END 2023-04-02 15:48 | disposition home or self-care (01) ==
PROVIDERS: PCP Family Medicine; Visit Provider Internal Medicine Hematology & Oncology
DX: D05.01 Lobular carcinoma in situ of right breast (principal)
CPT/HCPCS: 36415; 80047; 80053; 85025

== ENCOUNTER 2023-08-07 15:20 | Outpatient (CLI) | payer OTHER, SELFPAY ==
[2023-08-07 15:45] LABS: Basophils Absolute Auto 0.1 K/mm3 (0.0-0.1); Basophils Percent Auto 0.7 % (0.2-1.2); Eosinophils Absolute Auto 0.3 K/mm3 (0-0.3); Eosinophils Percent Auto 3.9 % (0-4.4); Hematocrit 42.9 % (37.0-47.0); Immature Granulocyte Absolute 0.01 K/mm3 (0.00-0.031); Immature Granulocyte Percent A 0.1 % (0-0.5); Lymphocytes Absolute Auto 3.04 K/mm3 (0.9-3.2); Lymphocytes Percent Auto 37.4 % (18.3-44.2); Mean Corpuscular HGB Conc 32.6 g/dl (32-36); Mean Corpuscular Hemoglobin 31.6 pg (26-34); Mean Corpuscular Volume 96.8 fl (80-100); Mean Platelet Volume 9.1 fl (7.4-10.4); Monocytes Absolute Auto 0.7 K/mm3 (0.1-0.6); Monocytes Percent Auto 8.6 % (2.6-8.5); Neutrophils Percent Auto 49.3 % (45.5-73.1); Platelet Count Result 297 k/mm3 (150-375); Red Blood Count 4.43 M/mm3 (4.2-5.4); Red Cell Distribution Width 13.2 % (11.5-14.5); White Blood Count 8.1 K/mm3 (4.5-10.0)
[2023-08-07 15:50] LABS: Blood Urea Nitrogen 20 mg/dL (8-26); Carbon Dioxide 26 mmol/L (22-30); Chloride 101 mmol/L (98-109); Estimated Glomerular Filt Rate > 60; Glucose 84 mg/dL (70-105); Ionized Calcium (POC) 1.11 mmol/L (1.11-1.31); Potassium 3.7 mmol/L (3.5-4.9); Sodium 140 mmol/L (138-146)
[2023-08-07 16:43] LABS: Alanine Aminotransferase 19 U/L (6-35); Albumin Level 3.9 g/dL (3.5-5.1); Alkaline Phosphatase 88 U/L (38-126); Anion Gap 2 mmol/L (8-16); Aspartate Amino Transferase 22 U/L (14-36); Bilirubin,Total 0.5 mg/dL (0.2-1.3); Blood Urea Nitrogen 20 mg/dL (7-17); Calcium 9.1 mg/dL (8.4-10.2); Carbon Dioxide 25 mmol/L (22-30); Chloride 105 mmol/L (98-107); Estimated Glomerular Filt Rate > 60; Glucose 87 mg/dL (65-110); Potassium 3.8 mmol/L (3.4-5.0); Sodium 132 mmol/L (137-145)
== END 2023-08-07 15:21 | disposition home or self-care (01) ==
PROVIDERS: PCP Family Medicine; Visit Provider Internal Medicine Hematology & Oncology
DX: D05.01 Lobular carcinoma in situ of right breast (principal)
CPT/HCPCS: 36415; 80047; 80053; 85025

== ENCOUNTER 2023-10-17 13:58 | Outpatient (CLI) | payer OTHER, SELFPAY ==
--- NOTE | ~2023-10-17 | CT_ITS ---
EXAMINATION: CT diagnostic chest wo con DATE: 10/17/2023 14:15 INDICATION: R91.1 - Solitary pulmonary nodule TECHNIQUE: Computed tomography (CT) of the chest was performed without intravenous contrast. Addition al 3D reconstructions utilizing coronal maximum intensity projection (MIP) were performed. Automated exposure control and iterative reconstruction technique were employed. The dose-length product was 67 .45 mGy-cm. COMPARISON: 12/11/2022 FINDINGS: Mild emphysema. Unchanged small branching mucus impacted bronchus in the lateral segment of the right middle lobe. And mild bronchiectasis with additional mucous plugging of a couple small peripheral br onchi at the posterior medial left lung base. Unchanged 3 mm subpleural nodule in the right middle lo be. No other suspicious pulmonary nodules, pneumonia, pulmonary edema or pleural effusion. Heart size is normal. No pericardial effusion. Thoracic aorta is normal in caliber. No pathologically enlarged thoracic lymphadenopathy. 1 cm cyst in the left hepatic lobe. Thoracic extra scoliosis with moderate to severe spondylosis. IMPRESSION: 1. Lung-RADS category 2: Benign appearance or behavior. Continue annual screening with noncontrast lo w-dose chest CT in 12 months. Reviewed, dictated and finalized at location B. CTOR OF RADIO SERVICES IMPRESSION: 1. Lung-RADS category 2: Benign appearance or behavior. Continue annual screeni ng with noncontrast low-dose chest CT in 12 months.
== END 2023-10-17 13:59 | disposition home or self-care (01) ==
PROVIDERS: PCP Family Medicine; Visit Provider Nurse Practitioner Family
DX: R91.1 Solitary pulmonary nodule (principal)
CPT/HCPCS: 71250

== ENCOUNTER 2023-10-23 15:02 | Outpatient (CLI) | payer OTHER, SELFPAY ==
--- NOTE | ~2023-10-23 | MM_ITS ---
EXAMINATION: MM screening hola BI w vaishali HISTORY: Screening mammogram TECHNIQUE: Craniocaudal and mediolateral oblique 3-D tomosynthesis images were obtained and synthetic 2-D images were generated. CAD analysis was submitted and interpreted. COMPARISON: 09/14/2022 diagnostic bilateral mammogram 04/17/2022 diagnostic right mammogram 10/12/2021 diagnostic bilateral mammogram and complete bilateral breast ultrasound examination 06/03/2019 bilateral screening mammogram BREAST PARENCHYMAL COMPOSITION: The breasts are heterogeneously dense, which may obscure small masses . FINDINGS: History of bilateral benign breast biopsies probable postbiopsy architectural distortion th e mid to upper outer right breast.. There is no evidence of suspicious mass, calcification, or new ar chitectural distortion to suggest malignancy in either breast. There has been no suspicious interval change. IMPRESSION: 1. Benign finding. No mammographic evidence of malignancy. 2. Recommend routine screening mammography in one year. BI-RADS Category 2: Benign finding(s). Reviewed, dictated and finalized at location A. M SHOVEL OPERATOR
== END 2023-10-23 15:03 | disposition home or self-care (01) ==
PROVIDERS: PCP Family Medicine; Visit Provider Internal Medicine Hematology & Oncology
DX: Z12.31 Encounter for screening mammogram for malignant neoplasm of breast (principal)
CPT/HCPCS: 77063; 77067

== ENCOUNTER 2024-01-15 11:14 | Outpatient (CLI) | payer OTHER, SELFPAY ==
[2024-01-15 11:35] LABS: Basophils Absolute Auto 0.1 K/mm3 (0.0-0.1); Basophils Percent Auto 0.6 % (0.2-1.2); Eosinophils Absolute Auto 0.3 K/mm3 (0-0.3); Hematocrit 43.3 % (37.0-47.0); Hemoglobin 14.2 g/dL (12.0-15.0); Immature Granulocyte Absolute 0.02 K/mm3 (0.00-0.031); Immature Granulocyte Percent A 0.2 % (0-0.5); Lymphocytes Absolute Auto 1.71 K/mm3 (0.9-3.2); Lymphocytes Percent Auto 20.5 % (18.3-44.2); Mean Corpuscular HGB Conc 32.8 g/dl (32-36); Mean Corpuscular Hemoglobin 31.3 pg (26-34); Mean Corpuscular Volume 95.6 fl (80-100); Monocytes Absolute Auto 0.7 K/mm3 (0.1-0.6); Monocytes Percent Auto 8.5 % (2.6-8.5); Neutrophils Absolute Auto 5.5 K/mm3 (1.3-6.7); Neutrophils Percent Auto 66.2 % (45.5-73.1); Platelet Count Result 301 k/mm3 (150-375); Red Blood Count 4.53 M/mm3 (4.2-5.4); Red Cell Distribution Width 13.6 % (11.5-14.5); White Blood Count 8.4 K/mm3 (4.5-10.0)
[2024-01-15 11:41] LABS: Blood Urea Nitrogen 10 mg/dL (8-26); Carbon Dioxide 28 mmol/L (22-30); Chloride 102 mmol/L (98-109); Estimated Glomerular Filt Rate > 60; Glucose 92 mg/dL (70-105); Potassium 3.9 mmol/L (3.5-4.9); Sodium 140 mmol/L (138-146)
[2024-01-15 12:52] LABS: Alanine Aminotransferase 21 U/L (6-35); Albumin Level 4.1 g/dL (3.5-5.1); Alkaline Phosphatase 100 U/L (38-126); Anion Gap 4 mmol/L (4-12); Aspartate Amino Transferase 28 U/L (14-36); Bilirubin,Total 0.6 mg/dL (0.2-1.3); Blood Urea Nitrogen 11 mg/dL (7-17); Calcium 9.4 mg/dL (8.4-10.2); Carbon Dioxide 28 mmol/L (22-30); Chloride 106 mmol/L (98-107); Estimated Glomerular Filt Rate > 60; Glucose 93 mg/dL (65-110); Potassium 3.9 mmol/L (3.4-5.0); Sodium 138 mmol/L (137-145)
== END 2024-01-15 11:15 | disposition home or self-care (01) ==
PROVIDERS: PCP Family Medicine; Visit Provider Internal Medicine Hematology & Oncology
DX: D05.01 Lobular carcinoma in situ of right breast (principal)
CPT/HCPCS: 36415; 80047; 80053; 85025

== ENCOUNTER 2024-01-24 13:52 | Outpatient (CLI) | payer OTHER, SELFPAY ==
--- NOTE | ~2024-01-24 | DEXA_ITS ---
Bone Density Report Name: EDMOND MILIAN Age: 58 Sex: Female Ethnicity: White Date of : 1965 Indication: postmenopausal; screening for osteoporosis; height loss; Referring Provider: GERARD, VERA Study: Bone densitometry was performed. Exam Date: January 24, 2024 Accession number: [id number] Bone Density: Region BMD T-score Z-score Classification AP Spine(L1-L4) 1.255 1.9 3.3 Normal Femoral Neck (Left) 0.714 -1.2 0.1 Osteopenia Total Hip (Left) 0.943 0.0 1.0 Normal Femoral Neck (Right) 0.745 -0.9 0.4 Normal Total Hip (Right) 0.972 0.2 1.2 Normal Total Hip Mean 0.957 0.1 1.1 Normal World Health Organization criteria for BMD impression classify patients as: Normal (T-score at or above -1.0), Osteopenia (T-score between -1.0 and -2.5), or Osteoporosis (T-score at or below -2.5). 10-year Fracture Risk(1): Major Osteoporotic Fracture 7.3% Hip Fracture 0.8% Reported Risk Factors: [place] (), Neck BMD=0.714, BMI=28.6, smoking (1) FRAX(R) Version 3.08. Fracture probability calculated for an untreated patient. Fracture probability may be lower if the patient has received treatment. Clinical Information Provided by Patient: Smokes Has used the following medications: Vitamin D Patient maximum height was 67.0 Menopause Age: 43 Drinks caffeinated beverages Onset of menses at age 11 Number of children 3 Impression: The patient has low bone mass, based on the Left Femoral Neck T-score. The patient has an estimated ten-year risk of hip fracture of 0.8% and an estimated ten-year risk of major fracture of 7.3%, based on the WHO FRAX algorithm. The patient has risk factors, including: smoking. Discussion: BONE DENSITY IS LOW AT ONE OR MORE SKELETAL SITES. This patient's lowest T-score is low at one or more skeletal sites. It meets the World Health Organization's (WHO) criteria for ?low bone mass? (T-score between -1.0 and -2.5). The patient's 10-year risk of fracture as calculated by FRAX is less than the threshold where pharmacological therapy is recommended by the National Osteoporosis Foundation (NOF). However, all treatment decisions require clinical judgment and consideration of individual patient factors, including patient preferences, comorbidities, previous drug use, risk factors not captured in the FRAX model (e.g., frailty, falls, vitamin D deficiency, increased bone turnover, interval significant decline in bone density) and possible under or overestimation of fracture risk by FRAX. The patient should follow a healthful lifestyle (good nutrition with adequate calcium and vitamin D, and appropriate weight-bearing exercise). Follow-Up: Consider repeating this study in 2 to 3 years to reassess this patient's status, or sooner if there is some new clinical in
== END 2024-01-24 13:53 | disposition home or self-care (01) ==
PROVIDERS: PCP Family Medicine; Visit Provider Nurse Practitioner Women's Health
DX: Z78.0 Asymptomatic menopausal state (principal); M85.88 Other specified disorders of bone density and structure, other site
CPT/HCPCS: 77080